=== PATIENT | female | born 2005 | race Hispanic/Latino ===

== ENCOUNTER 2023-11-20 22:04 | Emergency (ER) | payer OTHER ==
--- OUTSIDE RECORDS SUMMARY | 2023-11-20 22:08 | XMS REPORT | Continuity of Care Document ---
Author Name Unknown Address [address] [place] [address] [facility] thconnect Address [address] [facility] [address] [place] [address] Care Team Providers Care International Marketing Executive Name Role Phone PCP, PATIENT DOES NOT HAVE A Primary Care Physic kianna Unavailable Vannessa Shay Attending Clinician RIMA Hernández Attending Clinician RIMA Wright Attending Clinician Lucila gibson Doctor Unassigned, [place] Attending Clinician CLAUDINE Edward Attending Clinician Claudine Castellanos CNM Attending Clinician [phone] TRACEY CAMPOS Attending Clinician Unavail davide Campos Tracey PEACOCK Attending Clinician + JENNY DAVE Attending Clinician UnavailJENNY Chase Attending Clinician UnavailPERNELL Bustos Attending Clinician Pernell Valenzuela MD Attending Clinician [phone] Vaccine, Jed Family Attending Clinician Vannessa Vernon Admitting Clinician Unavailable Payers Payer Name Policy Type Policy Number Effective Date Expirati on Date Source JEZ HARMON [id number] 2023 00:00:00 [place] [id number] 2023 00:00:00 MEDICAID PENDING PENDING 2023 00:00:00 [employer] HARMON [id number] 2020 00:00:00 Problems Condition Name Condition Details Condition Category Status Onset Date Resolution Date Last Treatment Date Treating Clinician Comments Source Obesity (BMI 30-39.9) Obesity (BMI 30-39.9) Disease Active 3- 00:00: 00 [facility] related nausea, antepartum related nausea, antepartum Disease Active - 00:00: 00 [facility] Declines flu vaccine Declines flu vaccine Disease Active - 00:00: 00 [facility] History of miscarriag e, currently History of miscarriag e, currently Disease Active 1- 00:00: 00 [facility] Maternal varicella, non-immune Maternal varicella, non-immune Disease Active - 00:00: 00 [facility] Overweight (BMI 25.0-29.9) Overweight (BMI 25.0-29.9) Disease Active 03-02 00:00: 00 [facility] Allergies, Adverse Reactions, Alerts Allergy Name Allergy Type Status Severity Reaction(s) Onset Date Inactive Date Treating Clinician Comments Source No Known Allergie s DA Active U 2018-07 00:00: 00 [facility] No Known Allergie s DA Active U 2018-07 00:00: 00 [facility] No Known Contrast Allergie s DA Active U 2005-07 00:00: 00 [facility] No Known Drug Allergie s DA Active U 2005-07 00:00: 00 [facility] No Known Food Allergie s DA Active U 2005-07 00:00: 00 [facility] No Known Other Allergie s DA Active U 2005-07 00:00: 00 [facility] NO KNOWN ALLERGIE S Drug Class Active [facility] Social History Social Habit Start Date Stop Date Quantity Comments Source ASSERTION 2023-06-06 00:00:00 [facility] 2023-10-18 00:00:00 2023-10-18 00:00:00 Lifetime non-drinker (finding) [facility] History of Social function 2023-07-31 00:00:00 2023-07-31 00:00:00 [facility] Exposure to SARS-CoV-2 (event) 2022-02-20 00:00:00 2022-03-02 10:07:00 Not sure [facility] Tobacco use and exposure 2022-03-02 00:00:00 2022-03-02 00:00:00 Smokeless tobacco non-user [facility] Sex Assigned At 2005 00:00:00 2005 00:00:00 [facility] Smoking Status Start Date Stop Date Source Never smoked tobacco [facility] Medications Ordered Medication Name Filled Medication Name Start Date Stop Date Current Medication? Ordering Clinician Indication Dosage Frequency Signature (SIG) Comments Components Source No known medications 03-02 10:40: 53 No No known medication s [facility] Immunizations Ordered Immunization Name Filled Immunization Name Date Status Comments Source Meningococcal Polysaccharide (groups A, C, Y and W-135) conjugate vaccine (MCV4P) 2021-03-02 00:00:00 Completed [facility] HPV9 2021-03-02 00:00:00 Completed [facility] SARS-COV-2 COVID-19 PFIZER VACCINE 2021-03-02 00:00:00 Completed [facility] Meningococcal Polysaccharide (groups A, C, Y and W-135) conjugate vaccine (MCV4P) 2021-03-02 00:00:00 Completed [facility] HPV9 2021-03-02 00:00:00 Completed [facility] SARS-COV-2 COVID-19 PFIZER VACCINE 2021-03-02 00:00:00 Completed [facility] Meningococcal Polysaccharide (groups A, C, Y and W-135) conjugate vaccine (MCV4P) 2021-03-02 00:00:00 Completed [facility] HPV9 2021-03-02 00:00:00 Completed [facility] SARS-COV-2 COVID-19 PFIZER VACCINE 2021-03-02 00:00:00 Completed [facility] Meningococcal Polysaccharide (groups A, C, Y and W-135) conjugate vaccine (MCV4P) Unknown Completed [facility] HPV9 Unknown Completed [facility] SARS-COV-2 COVID-19 PFIZER VACCINE Unknown Completed [facility] Meningococcal Polysaccharide (groups A, C, Y and W-135) conjugate vaccine (MCV4P) Unknown Completed [facility] HPV9 Unknown Completed [facility] SARS-COV-2 COVID-19 PFIZER VACCINE Unknown Completed [facility] DTaP, Unspecified Formulation Unknown Completed [facility] DTaP, Unspecified Formulation Unknown Completed [facility] DTaP, Unspecified Formulation Unknown Completed [facility] DTaP, Unspecified Formulation Unknown Completed [facility] DTaP, Unspecified Formulation Unknown Completed [facility] HEPATITIS A Unknown Completed [facility] HEPATITIS A Unknown Completed [facility] Hep B, Adol or Pedi Dosage Unknown Completed [facility] Hep B, Adol or Pedi Dosage Unknown Completed [facility] Hep B, Adol or Pedi Dosage Unknown Completed [facility] HIB 4 Dose Schedule Unknown Completed [facility] HIB 4 Dose Schedule Unknown Completed [facility] HIB 4 Dose Schedule Unknown Completed [facility] HIB 4 Dose Schedule Unknown Completed [facility] MMR Unknown Completed [facility] Proquad (MMR/VARICELLA) Unknown Completed [facility] Meningococcal Vaccine Unknown Completed [facility] Pneumococcal 7 Conjugate, PCV7 (Prevnar7) Unknown Completed [facility] Pneumococcal 7 Conjugate, PCV7 (Prevnar7) Unknown Completed [facility] Pneumococcal 7 Conjugate, PCV7 (Prevnar7) Unknown Completed [facility] IPV Unknown Completed [facility] IPV Unknown Completed [facility] IPV Unknown Completed [facility] IPV Unknown Completed [facility] TDAP Unknown Completed [facility] Varicella (varivax)(chicken pox) Unknown Completed [facility] Meningococcal Polysaccharide (groups A, C, Y and W-135) conjugate vaccine (MCV4P) Unknown Completed [facility] HPV9 Unknown Completed [facility] SARS-COV-2 COVID-19 PFIZER VACCINE Unknown Completed [facility] DTaP, Unspecified Formulation Unknown Completed [facility] DTaP, Unspecified Formulation Unknown Completed [facility] DTaP, Unspecified Formulation Unknown Completed [facility] DTaP, Unspecified Formulation Unknown Completed [facility] DTaP, Unspecified Formulation Unknown Completed [facility] HEPATITIS A Unknown Completed [facility] HEPATITIS A Unknown Completed [facility] Hep B, Adol or Pedi Dosage Unknown Completed [facility] Hep B, Adol or Pedi Dosage Unknown Completed [facility] Hep B, Adol or Pedi Dosage Unknown Completed [facility] HIB 4 Dose Schedule Unknown Completed [facility] HIB 4 Dose Schedule Unknown Completed [facility] HIB 4 Dose Schedule Unknown Completed [facility] HIB 4 Dose Schedule Unknown Completed [facility] MMR Unknown Completed [facility] Proquad (MMR/VARICELLA) Unknown Completed [facility] Meningococcal Vaccine Unknown Completed [facility] Pneumococcal 7 Conjugate, PCV7 (Prevnar7) Unknown Completed [facility] Pneumococcal 7 Conjugate, PCV7 (Prevnar7) Unknown Completed [facility] Pneumococcal 7 Conjugate, PCV7 (Prevnar7) Unknown Completed [facility] IPV Unknown Completed [facility] IPV Unknown Completed [facility] IPV Unknown Completed [facility] IPV Unknown Completed [facility] TDAP Unknown Completed [facility] Varicella (varivax)(chicken pox) Unknown Completed [facility] Meningococcal Polysaccharide (groups A, C, Y and W-135) conjugate vaccine (MCV4P) Unknown Completed [facility] HPV9 Unknown Completed [facility] SARS-COV-2 COVID-19 PFIZER VACCINE Unknown Completed [facility] DTaP, Unspecified Formulation Unknown Completed [facility] DTaP, Unspecified Formulation Unknown Completed [facility] DTaP, Unspecified Formulation Unknown Completed [facility] DTaP, Unspecified Formulation Unknown Completed [facility] DTaP, Unspecified Formulation Unknown Completed [facility] HEPATITIS A Unknown Completed [facility] HEPATITIS A Unknown Completed [facility] Hep B, Adol or Pedi Dosage Unknown Completed [facility] Hep B, Adol or Pedi Dosage Unknown Completed [facility] Hep B, Adol or Pedi Dosage Unknown Completed [facility] HIB 4 Dose Schedule Unknown Completed [facility] HIB 4 Dose Schedule Unknown Completed [facility] HIB 4 Dose Schedule Unknown Completed [facility] HIB 4 Dose Schedule Unknown Completed [facility] MMR Unknown Completed [facility] Proquad (MMR/VARICELLA) Unknown Completed [facility] Meningococcal Vaccine Unknown Completed [facility] Pneumococcal 7 Conjugate, PCV7 (Prevnar7) Unknown Completed [facility] Pneumococcal 7 Conjugate, PCV7 (Prevnar7) Unknown Completed [facility] Pneumococcal 7 Conjugate, PCV7 (Prevnar7) Unknown Completed [facility] IPV Unknown Completed [facility] IPV Unknown Completed [facility] IPV Unknown Completed [facility] IPV Unknown Completed [facility] TDAP Unknown Completed [facility] Varicella (varivax)(chicken pox) Unknown Completed [facility] Vital Signs Vital Name Observation Time Observation Value Comments S ource Systolic blood pressure 2023-10-18 19:57:00 109 mm[Hg] [facility] Diastolic blood pressure 2023-10-18 19:57:00 70 mm[Hg] [facility] Heart rate 2023-10-18 19:57:00 92 /min [facility] Body temperature 2023-10-18 19:57:00 36.94 Concepcion [facility] Respiratory rate 2023-10-18 19:57:00 18 /min [facility] Body height 2023-10-18 19:57:00 154.9 cm [facility] Body weight 2023-10-18 19:57:00 74.447 kg [facility] BMI 2023-10-18 19:57:00 31.01 kg/m2 [facility] Systolic blood pressure 2023-07-31 19:40:00 115 mm[Hg] [facility] Diastolic blood pressure 2023-07-31 19:40:00 77 mm[Hg] [facility] Heart rate 2023-07-31 19:40:00 81 /min [facility] Body temperature 2023-07-31 19:40:00 36.22 Concepcion [facility] Respiratory rate 2023-07-31 19:40:00 18 /min [facility] Body height 2023-07-31 19:40:00 157.5 cm [facility] Body weight 2023-07-31 19:40:00 72.122 kg [facility] BMI 2023-07-31 19:40:00 29.08 kg/m2 [facility] Systolic blood pressure 2022-03-02 15:18:00 113 mm[Hg] [facility] Diastolic blood pressure 2022-03-02 15:18:00 69 mm[Hg] [facility] Heart rate 2022-03-02 15:18:00 74 /min [facility] Body temperature 2022-03-02 15:18:00 36.33 Concepcion [facility] Respiratory rate 2022-03-02 15:18:00 18 /min [facility] Body height 2022-03-02 15:18:00 157.5 cm [facility] Body weight 2022-03-02 15:18:00 74.163 kg [facility] BMI 2022-03-02 15:18:00 29.90 kg/m2 [facility] Oxygen saturation in Arterial blood by Pulse oximetry 2022-03-02 15:18:00 99 /min [facility] Procedures Procedure Date / Time Performed Performing Clinicia n Source >14 WEEKS US LIMITED 2023-10-18 20:23:29 Rima Cagle [facility] CONSENT TO CONTACT FOR VOLUNTARY RESEARCH 2023-10-18 19:42:45 Doctor Unassigned, [place] [facility] POCT URINALYSIS W/O SPECIFIC GRAVITY 2023-10-18 00:00:00 Rima Cagle [facility] GLUCOSE 1 HOUR POST PRANDIAL 2023-07-31 20:45:00 Claudine Dior [facility] CBC WITH DIFF 2023-07-31 20:45:00 Claudine Dior [facility] HEPATITIS B SURFACE ANTIGEN 2023-07-31 20:45:00 Claudine Dior [facility] HCV ANTIBODY 2023-07-31 20:45:00 [facility] 2023-07-31 20:45:00 Claudine Dior [facility] HIV 1/2 AG-AB WITH REFLEX 2023-07-31 20:45:00 Claudine Dior [facility] SYPHILIS IGG/IGM 2023-07-31 20:45:00 Claudine Dior [facility] POCT TEST 2023-07-31 19:34:00 Jessica Dior [facility] POCT URINALYSIS W/O SPECIFIC GRAVITY 2023-07-31 19:34:00 Claudine Dior [facility] CONSENT/REFUSAL FOR DIAGNOSIS AND TREATMENT 2023-07-31 19:30:03 Doctor Unassigned, [place] [facility] [id number] 2019-07-27 00:00:00 UZAIR [facility] [id number] 2019-07-27 00:00:00 UZAIR [facility] [id number] 2019-07-27 00:00:00 [facility] Encounters Start Date/Time End Date/Time Encounter Type Admission Type Attending Clinicians Care Facility Care Department Encounter ID Source 2019-08-09 00:00:00 Inpatient MALA Vannessa Shay [facility] [id number] [facility] 2019-07-27 17:02:00 Inpatient YEIMY Vannessa Shay [facility] [id number] [facility] 2023-11-15 08:15:00 2023-11-15 08:15:00 Outpatient R GARRETT-SHAWN S, RIMA GARRETT-SHAWN S, RIMA [facility] [id number] [facility] 2023-10-31 13:32:24 2023-10-31 13:32:24 Outpatient [facility] [id number] Navi Peters [place] 2023-10-28 14:32:44 2023-10-28 14:32:44 [id number] [id number] Navi Peters [place] 2023-10-21 08:15:00 2023-10-21 08:15:00 Outpatient R [facility] [id number] [facility] 2023-10-18 15:00:00 2023-10-18 15:28:29 Outpatient R GARRETT-SHAWN S, RIMA GARRETT-SHAWN S, RIMA [facility] [id number] [facility] 2023-10-18 15:00:00 2023-10-18 15:28:29 Initial Visit Garrett-Shawn s, Rima [facility] 1..840.114 350.1.13.10 4.2.7.2.686 [id number] [facility] 2023-10-18 00:00:00 2023-10-18 00:00:00 Orders Only Doctor Unassigned, [place] [facility] 1..840.114 350.1.13.10 4.2.7.2.686 [id number] [facility] 2023-09-24 10:30:00 2023-09-24 10:30:00 Outpatient CLAUDINE NEWMAN [facility] [id number] [facility] 2023-09-10 14:15:00 2023-09-10 14:15:00 Outpatient R CLAUDINE DIOR [facility] [id number] [facility] 2023-08-28 10:15:2023-08-28 10:15:00 Outpatient R ZOIEOpal CLAUDINE [facility] [id number] [facility] 2023-07-31 13:00:00 2023-07-31 14:08:24 Outpatient R ZOIEOpal CLAUDINE [facility] [id number] [facility] 2023-07-31 13:00:00 2023-07-31 14:08:24 Initial Visit Claudine Dior [facility] 1..114 350.1.13.10 4.2.7.2.686 [id number] [facility] 2023-07-31 00:00:00 2023-07-31 00:00:00 Orders Only Doctor Unassigned, [place] [facility] 1.0.114 350.1.13.10 4.2.7.2.686 [id number] [facility] 2023-01-09 11:00:00 2023-01-09 11:00:00 Outpatient R TRACEY CAMPOS [facility] [id number] [facility] 2023-01-09 00:00:00 2023-01-09 00:00:00 Telephone Tracey Campos [facility] 1.84.114 350.1.13.10 4.2.7.2.686 [id number] [facility] 2022-06-04 07:45:00 2022-06-04 07:45:00 Outpatient R JENNY DAVE CHRISTINA [facility] [id number] [facility] 2022-06-04 00:00:00 2022-06-04 00:00:00 Telephone Jenny Dave [facility] .84.114 350.1.13.10 4.2.7.2.686 [id number] [facility] 2022-03-02 10:00:00 2022-03-02 11:30:59 Office Visit Jenny Dave [facility] 1..114 350.1.13.10 4.2.7.2.686 [id number] [facility] 2022-03-02 10:00:00 2022-03-02 11:30:59 Outpatient R JENNY DAVE [facility] [id number] [facility] 2022-03-02 10:00:00 2022-03-02 10:00:00 Outpatient R JENNY DAVE [facility] [id number] [facility] 2022-03-02 00:00:00 2022-03-02 00:00:00 Orders Only Doctor Unassigned, [place] [facility] 1..114 350.1.13.10 4.2.7.2.686 [id number] [facility] 2021-11-30 08:30:00 2021-11-30 08:30:00 Outpatient R PERNELL RAMIREZ [facility] [id number] [facility] 2021-03-24 13:00:00 2021-03-24 13:00:00 Outpatient R [facility] [id number] [facility] 2021-03-02 12:59:14 2021-03-02 17:00:48 Office Visit [facility] 1.114 350.1.13.10 4.2.7.2.686 [id number] [facility] 2021-03-02 13:21:14 2021-03-02 13:31:14 Imm/Inj Visit Vaccine, Jed Family [facility] 1..114 350.1.13.10 4.2.7.2.686 [id number] [facility] 2021-03-02 13:00:00 2021-03-02 13:00:00 Outpatient R PERNELL RAMIREZ [facility] [id number] [facility] 2021-03-02 00:00:00 2021-03-02 00:00:00 Orders Only Doctor Unassigned, [place] [facility] 1.114 350.1.13.10 4.2.7.2.686 [id number] [facility] 2021-02-27 15:40:00 2021-02-27 15:40:00 Outpatient R PERNELL RAMIREZ [facility] [id number] [facility] 2021-01-13 13:40:00 2021-01-13 13:40:00 Outpatient Keyur [facility] [id number] [facility] 2021-01-03 15:20:00 2021-01-03 15:20:00 Outpatient R PERNELL RAMIREZ [facility] [id number] [facility] 2020-10-18 13:00:00 2020-10-18 13:00:00 Outpatient PERNELL ORLANDO [facility] [id number] [facility] 2020-10-04 14:25:10 2020-10-04 14:45:10 Office Visit [facility] 1.114 350.1.13.10 4.2.7.2.686 [id number] [facility] 2020-10-04 14:00:00 2020-10-04 14:00:00 Outpatient R PERNELL RAMIREZ [facility] [id number] [facility] 2020-10-04 00:00:00 2020-10-04 00:00:00 Orders Only Doctor Unassigned, [place] [facility] 1.114 350.1.13.10 4.2.7.2.686 [id number] [facility] Results Test Description Test Time Test Comments Results Result Co mments Source [facility] 2023-10-18 19:42:45* Test Item Value Reference Range Interpretation Comme nts [facility] (test code = 4947) Yes [facility] - SYPHILIS [id number] 17:02:24* Test Item Value Reference Range Interpretation Comme nts Syphilis IgG/IgM (test code = 28347-1) Non-reactive Non-reactive JOANIE (test code = JOANIE) Non-reactive - No serologic evidence of T. pallidum infection. Cannot exclude incubating or early syphilis. Submit a second specimen in 2-4 weeks if syphilis is clinically suspected. Equivocal - Further testing to follow. Reactive - Further testing to follow. Lab Interpretation (test code = 06055-3) Normal [facility] AG-AB WITH [id number] 09:29:10* Test Item Value Reference Range Interpretation Comme [facility] HIV Semi-quantitative (test code = 74071-1) 0.10 Negative JOANIE (test code = JOANIE) Non-reactive for HIV-1 antigen and HIV-1/HIV-2 antibodies. ?No laboratory evidence of HIV infection. ?Repeat in 2-4 weeks if acute HIV infection is suspected. [facility] Center[facility]CV [id number] 08:22:27* Test Item Value Reference Range Interpretation Comme [facility] HCV Ab (test code = 24597-6) Negative HCV Semi-Quantitative (test code = 70785-5) 0.01 [facility] SURFACE [id number] 08:05:01 * Test Item Value Reference Range Interpretation Comme [facility] HBsAg Semi-Quantitative (anastasia t code = 5195-3) 0.09 Negative [facility] 1 Hour Post [id number] 06:37:14* Test Item Value Reference Range Interpretation Comme nts GLUC 1 HR (test code = 8324893164) 79 mg/dL 120-170 L Lab Interpretation (test cod e = 64262-1) Abnormal [facility] WITH [id number] 05:28:46* Test Item Value Reference Range Interpretation Comme nts WBC (test code = 6690-2) 8.84 See_Comment [Automated messa ge] The system which generated this result transmitted reference range: 4.30 - 11.10 10*3/?L. The reference range was not used to interpret this result as normal/abnormal. RBC (test code = 789-8) 5.09 See_Comment [Automated [facility] ge] The system which generated this result transmitted reference range: 3.93 - 5.25 10*6/?L. The reference range was not used to interpret this result as normal/abnormal. HGB (test code = 718-7) 13.5 g/dL 11.6-15.0 HCT (test code = 4544-3) 41.2 % 35.7-45.2 MCV (test code = 787-2) 80.9 fL 80.6-95.5 MCH (test code = 785-6) 26.5 pg 25.9-32.8 MCHC (test code = 786-4) 32.8 g/dL 31.6-35.1 RDW-SD (test code = 96084-9) 41.4 fL 39.0-49.9 RDW-CV (test code = 788-0) 14.2 % 12.0-15.5 PLT (test code = 777-3) 261 See_Comment [Automated [employer] ge] The system which generated this result transmitted reference range: 166 - 358 10*3/?L. The reference range was not used to interpret this result as normal/abnormal. MPV (test code = 10438-0) 10.8 fL 9.5-12.9 NRBC/100 WBC (test code = 7411063410) 0.0 See_Comment [Automated me ssage] The system which generated this result transmitted reference range: 0.0 - 10.0 /100 WBCs. The reference range was not used to interpret this result as normal/abnormal. NRBC x10^3 (test code = 9622565761) See_Comment [Automated me ssage] The system which generated this result transmitted reference range: 10*3/?L. The reference range was not used to interpret this result as normal/abnormal. GRAN MAT (NEUT) % (test code = 770-8) 74.2 % IMM GRAN % (test code = 0263720679) 0.20 % LYMPH % (test code = 736-9) 19.1 % MONO % (test code = 5905-5) 4.8 % EOS % (test code = 713-8) 0.9 % BASO % (test code = 706-2) 0.8 % GRAN MAT x10^3(ANC) (test code = 7658327483) 6.56 10*3/uL 1.88-7.09 IMM GRAN x10^3 (test code = 3159723850) 0.00-0.06 LYMPH x10^3 (test code = 731-0) 1.69 10*3/uL 1.32-3.29 MONO x10^3 (test code = 742-7) 0.42 10*3/uL 0.33-0.92 EOS x10^3 (test code = 711-2) 0.08 10*3/uL 0.03-0.39 BASO x10^3 (test code = 704-7) 0.07 10*3/uL 0.01-0.07 [facility] [id number] 21:04:00 * Test Item Value Reference Range Interpretation Comme nts ABO & RH (test code = 20) O POSITIVE IAT (test code = 1185) Negative [facility] [id number] 19:34:00* Test Item Value Reference Range Interpretation Comme nts POCT PREG (test code = 1605) Positive On board controls acceptable with C Line (test code = 3574) Yes POCT PREG LOT # (test code = 3575) POCT PREG TEST DATE ( test code = 3576) [facility] Urinalysis w/o Specific Npyvngu0561-88-48 19:34:00* Test Item Value Reference Range Interpretation Comme nts POCT PH U (test code = 3254) 7 mg/dl 5-8 POCT U LEUK EST (test code = 3263) 2+ Negative - Negative POCT U NIT (test code = 3262) Neg Negative - Negati ve POCT U PROT (test code = 8059) Neg Negative - Negat jose POCT U GLU (test code = 4926) Nml Negative - Negati ve POCT U KETONE (test code = 3258) Neg Negative - Neg ative POCT U BLD (test code = 3257) Trace Negative - Negati ve [facility] Center[facility] [id number] 12:43:00* Test Item Value Reference Range Interpretation Comme nts AG HEPATITIS B SURFACE (test code = HBSAG) NONREACTIVE NONREACTIVE IS CONSENT FORM SIGNED FOR HIV TESTING? YAB HEPATITIS C [id number] 12:43:00* Test Item Value Reference Range Interpretation Comme nts AB HEPATITIS C (test code = HCVAB) NONREACTIVE NONREACTIVE SIGNAL TO CUTOFF (test code = CUTOFF) 0.11 <0.80 N IS CONSENT FORM SIGNED FOR HIV TESTING? YAB [id number] 12:43:00* Test Item Value Reference Range Interpretation Comme nts AB TREPONEMA (test code = TREPAB) NONREACTIVE NONREACTIVE IS CONSENT FORM SIGNED FOR HIV TESTING? YAB HIV 1 12:43:00* Test Item Value Reference Range Interpretation Comme nts AB HIV 1 2 (test code = JUC68MG) NONREACTIVE NONREACTIVE Done by [employer] 4th Gen HIV Ag/Ab Combo Screen IS CONSENT FORM SIGNED FOR HIV TESTING? YHGB [id number] 05:54:00* Test Item Value Reference Range Interpretation Comme nts HEMOGLOBIN (test code = HGB) 9.2 g/dL 12.0-16.0 L HEMATOCRIT (test code = HCT) 28.7 % 36-45 L AG HEPATITIS B [id number] 19:04:00* Test Item Value Reference Range Interpretation Comme nts AG HEPATITIS B SURFACE (test code = HBSAG) NONREACTIVE NONREACTIVE IS CONSENT FORM SIGNED FOR HIV TESTING? YAB HEPATITIS C [id number] 19:04:00* Test Item Value Reference Range Interpretation Comme nts AB HEPATITIS C (test code = HCVAB) NONREACTIVE NONREACTIVE SIGNAL TO CUTOFF (test code = CUTOFF) 0.11 <0.80 N IS CONSENT FORM SIGNED FOR HIV TESTING? YAB [id number] 19:04:00* Test Item Value Reference Range Interpretation Comme nts AB TREPONEMA (test code = TREPAB) NONREACTIVE NONREACTIVE IS CONSENT FORM SIGNED FOR HIV TESTING? YAB HIV 1 19:04:00* Test Item Value Reference Range Interpretation Comme nts AB HIV 1 2 (test code = NGP49GA) NONREACTIVE IS CONSENT FORM SIGNED FOR HIV TESTING? YAG HEPATITIS B [id number] 18:41:00* Test Item Value Reference Range Interpretation Comme nts AG HEPATITIS B SURFACE (test code = HBSAG) NONREACTIVE NONREACTIVE IS CONSENT FORM SIGNED FOR HIV TESTING? YAB HEPATITIS C [id number] 18:41:00* Test Item Value Reference Range Interpretation Comme nts AB HEPATITIS C (test code = HCVAB) NONREACTIVE SIGNAL TO CUTOFF (test code = CUTOFF) <0.80 IS CONSENT FORM SIGNED FOR HIV TESTING? YAB [id number] 18:41:00* Test Item Value Reference Range Interpretation Comme nts AB TREPONEMA (test code = TREPAB) NONREACTIVE NONREACTIVE IS CONSENT FORM SIGNED FOR HIV TESTING? YAB HIV 1 18:41:00* Test Item Value Reference Range Interpretation Comme nts AB HIV 1 2 (test code = XBI89QA) NONREACTIVE IS CONSENT FORM SIGNED FOR HIV TESTING? YCBC W/AUTO [id number] 17:34:00* Test Item Value Reference Range Interpretation Comme nts WHITE BLOOD CELL (test code = WBC) 11.3 K/mm3 6.6-12.1 N RED BLOOD CELL (test code = RBC) 4.21 M/mm3 3.45-5.01 N HEMOGLOBIN (test code = HGB) 11.3 g/dL 12.0-16.0 L HEMATOCRIT (test code = HCT) 34.6 % 36-45 L MEAN CELL VOLUME (test code = MCV) 82 fL 84.1-94.8 L MEAN CELL HGB (test code = MCH) 26.8 pg 26-32 N MEAN CELL HGB CONCETRATION ( test code = MCHC) 32.7 gm/dL 32-35 N RED CELL DISTRIBUTION WIDTH (test code = RDW) 13.5 % 12.4-16.5 N PLATELET COUNT (test code = PLT) 219 K/mm3 135-380 N IMMATURE PLATELET FRACTION ( test code = IPF) 0.0 % 0.0-10.8 N MEAN PLATELET VOLUME (test c ode = MPV) 10.7 fl 9.1-12.7 N NEUTROPHIL % (test code = NT%) 80.5 % 56.5-79.4 H LYMPHOCYTE % (test code = LY%) 14.0 % 14.3-34.3 L MONOCYTE % (test code = MO%) 4.4 % 5.1-10.4 L EOSINOPHIL % (test code = EO%) 0.3 % 0.1-3.0 N BASOPHIL % (test code = BA%) 0.4 % 0.1-1.0 N NEUTROPHIL # (test code = NT#) 9.1 K/mm3 LYMPHOCYTE # (test code = LY#) 1.6 K/mm3 MONOCYTE # (test code = MO#) 0.5 K/mm3 EOSINOPHIL # (test code = EO#) 0.03 K/mm3 BASOPHIL # (test code = BA#) 0.0 K/mm3 RBC MORPHOLOGY REQUIRED (anastasia t code = RBCM) NORMAL NORMAL PLATELET MORPHOLOGY REQUIRED (test code = PLTMR) NORMAL NORMAL COMPREHENSIVE METABOLIC [id number] 21:09:00* Test Item Value Reference Range Interpretation Comme nts SODIUM (test code = NA) 137 mEq/L 133-142 N POTASSIUM (test code = K) 3.8 mEq/L 3.5-5.0 N CHLORIDE (test code = CL) 103 mEq/L 98-107 N CARBON DIOXIDE (test code = CO2) 23 mEq/L 22-31 N ANION GAP (test code = GAP) 14.60 10-20 N GLUCOSE (test code = GLU) 79 mg/dL 65-100 N BLOOD UREA NITROGEN (test co de = BUN) 7 mg/dL 9-20 L CREATININE (test code = CREAT) 0.6 mg/dL 0.5-1.0 N TOTAL PROTEIN (test code = PROT) 6.9 gm/dL 6.3-8.2 N ALBUMIN (test code = ALB) 2.7 gm/dL 3.9-5.1 L CALCIUM (test code = CA) 8.5 mg/dL 8.9-10.7 L BILIRUBIN TOTAL (test code = BILT) 0.3 mg/dL 0.2-1.0 N SGOT/AST (test code = AST) 17 units/L 15-37 N SGPT/ALT (test code = ALT) 25 units/L 12-78 N ALKALINE PHOSPHATASE TOTAL ( test code = ALKP) 205 units/L 125-500 N [id number] 21:09:00* Test Item Value Reference Range Interpretation Comme nts LIPASE (test code = LIP) 130 units/L 73-393 N UA RFLX MICR CULT IF [id number] 20:44:00* Test Item Value Reference Range Interpretation Comme nts UA COLOR (test code = COLU) STRAW YELLOW UA APPEARANCE (test code = APPU) CLEAR CLEAR UA GLUCOSE DIPSTICK (test co de = DGLUU) NEGATIVE NEG UA BILIRUBIN DIPSTICK (test code = BILU) NEGATIVE NEG UA KETONE DIPSTICK (test cod e = KETU) NEGATIVE NEG UA SPECIFIC GRAVITY (test co de = SGU) 1.004 1.001-1.035 N UA BLOOD DIPSTICK (test code = DENICE) NEG NEG UA PH DIPSTICK (test code = RAY) 8.0 5-9 UA PROTEIN DIPSTICK (test co de = PROU) NEGATIVE NEG UA UROBILINIOGEN DIPSTICK (test code = URO) NEGATIVE mg/dL NEG UA NITRITE DIPSTICK (test co de = MYRIAM) NEG NEG UA LEUKOCYTE ESTERASE DIPSTI CK (test code = LEUU) TRACE NEG A UA WBC (test code = WBCU) 11-15 #/hpf NONE SEEN A UA RBC (test code = RBCU) 0-2 #/hpf NONE SEEN UA EPITHELIAL CELLS (test co de = EPIU) RARE #/HPF RARE-FEW UA BACTERIA (test code = BACU) MODERATE /HPF RARE-FEW A UA MUCUS (test code = MUCU) RARE NONE SEEN UA SPERM (test code = SPERMU) FEW /HPF Indication for culture: Dysuria/FrequencyCBC W/AUTO [id number] 20:37:00* Test Item Value Reference Range Interpretation Comme nts WHITE BLOOD CELL (test code = WBC) 10.5 K/mm3 6.6-12.1 N RED BLOOD CELL (test code = RBC) 4.16 M/mm3 3.45-5.01 N HEMOGLOBIN (test code = HGB) 11.3 g/dL 12.0-16.0 L HEMATOCRIT (test code = HCT) 35.2 % 36-45 L MEAN CELL VOLUME (test code = MCV) 85 fL 84.1-94.8 N MEAN CELL HGB (test code = MCH) 27.2 pg 26-32 N MEAN CELL HGB CONCETRATION ( test code = MCHC) 32.1 gm/dL 32-35 N RED CELL DISTRIBUTION WIDTH (test code = RDW) 12.9 % 12.4-16.5 N PLATELET COUNT (test code = PLT) 231 K/mm3 135-380 N IMMATURE PLATELET FRACTION ( test code = IPF) 0.0 % 0.0-10.8 N MEAN PLATELET VOLUME (test c ode = MPV) 10.6 fl 9.1-12.7 N NEUTROPHIL % (test code = NT%) 71.1 % 56.5-79.4 N LYMPHOCYTE % (test code = LY%) 21.1 % 14.3-34.3 N MONOCYTE % (test code = MO%) 6.2 % 5.1-10.4 N EOSINOPHIL % (test code = EO%) 0.7 % 0.1-3.0 N BASOPHIL % (test code = BA%) 0.5 % 0.1-1.0 N NEUTROPHIL # (test code = NT#) 7.5 K/mm3 LYMPHOCYTE # (test code = LY#) 2.2 K/mm3 MONOCYTE # (test code = MO#) 0.7 K/mm3 EOSINOPHIL # (test code = EO#) 0.07 K/mm3 BASOPHIL # (test code = BA#) 0.1 K/mm3 RBC MORPHOLOGY REQUIRED (anastasia t code = RBCM) NORMAL NORMAL PLATELET MORPHOLOGY REQUIRED (test code = PLTMR) NORMAL NORMAL Notes Date/Time Note Provider Source 2023-10-18 15:00:00 eKwYu2/siAVu5/Ye1YCJ BnJ147OGMmMqpJvct/OeiV N8zSnhMQFGN5R7SKLPdFHD1931-56-98V90:00:00F ormatting of this note is different from the original.ROUTINE VISIT--transfer of care10/18/2023 3:27 PMSUBJECTIVEElymike Heath is a 18 year old at 21w1d who presents for routine visit. She has no complaints today; denies contractions, loss of fluid, vaginal bleeding, and signs or symptoms of pre-eclampsia. Good movement.Previous uncomplicated. Issues getting insurance approved so no care since 9 weeks.OBJECTIVEBP 109/70 (BP Location: Left arm, Patient Position: Sitting, BP CUFF SIZE: Adult Medium) | Pulse 92 | Temp 36.9 ?C (98.5 ?F) (Skin) | Resp 18 | Ht 5' 1" (1.549 m) | Wt 164 lb 2 oz (74.4 kg) | LMP 05/23/2023 (Exact Date) | BMI 31.01 kg/m?Physical Exam:Gen: A&Ox3, NADPulm: No labored breathingAbd: Soft, gravid, NTTP, ND, no rebound or guardingExt: No calf tendernessGU: deferredASSESSMENT:Hallie Heath is a 18 year old at 21w1d who presents for routine visit.Patient Active Problem ListDiagnosisOverweight (BMI 25.0-29.9) related nausea, antepartumDeclines flu vaccineHistory of miscarriage, currently Maternal varicella, non-immuneObesity (BMI 30-39.9)Transabdominal US performed:EGA: 20w4d consistent with LMPFetal Position: complete breechPlacenta location: posterior, low lyingFHR: 248AHXN4. 21 weeks gestation of - POCT Urinalysis w/o Specific [place]- CONSULT MATERNAL MEDICINE ULTRASOUND Preferred Location: [place]2. High-risk in second trimester- OB Ultrasound Transabdominal, Limited (>14 wks)- CONSULT MATERNAL MEDICINE ULTRASOUND Preferred Location: [place]--pt accepts genetic screening--Anatomy US requested--reviewed today's US findings--All questions answered [id number] mltgOL8893-58-44L77:34:43Progress noteTXT1.2.840.333243.1.13.104.2.7.2.87102 9|[id number] for patient zujn02225-5PnkoNUDTMFKVYVXSqdtdyhdq C-CDA narrative textUTMBUT - [address] HpxrPqdctclbrMbbueanduZTOY1018947996KWPEKG KUMOFXHGMNUTGUVL5516-53-99W66:34:431.2.840 .329991.1.72.3.15|1.2.840.300950.1.13.104. 2.7.2.727879_[id number] [facility] 2019-07-27 21:41:00 BMjkrqwufmg58944615J qSIryMTT+KL+3qz8pk7rTJ ws3J67HthH1dgQJYicsYn4UGwR4SndlrSuHpaJ0V59 986-87-08R27:41:00 [facility] ([facility])OB Delivery NoteREPORT#:[id number] REPORT STATUS: SignedDATE:07/27/19 TIME: 2140 PATIENT: HALLIE HEATH UNIT #: [id number]#: [id number] [facility] [place]: [facility] AGE: 14 SEX: F ATTEND: Vannessa Shay [facility] AUTHOR: Vannessa Shay MD * ALL edits or amendments must be made on the electronic/computer document * OB Delivery Pre-deliveryGBS status: GBS status: negative Prophylaxis administered: noneAdmission EGA (wks/days): 38 weeksEGA at delivery (wks/days): 38 weeks GeneralVS:Last Documented: Result Date Time B/P Mean 103.0 07/27 2055 B/P 126/87 07/27 2055 Pulse 104 07/27 2055 Temp 36.8 07/27 1909 Resp 20 07/27 1719 Membranes: AROMROM date: 07/27/19ROM time: mniotic fluid: clearLabor onset: Date: 07/27/19 Baby A InformationBaby A information Delivery date: 07/27/19 Delivery time: 2114 status: live born Wt of baby: not yet available Gender: male 1 minute: 8 5 minutes: 9 Presentation: vertexABG details Baby A Cord blood gases: not collectedNuchal cord Baby A Nuchal cord: yes (tight,deliv.through) Vaginal DeliveryVaginal delivery Labor: spontaneous Vaginal delivery: spontaneous Amniotic fluid: clear Anesthesia type: epidural anesthesia Episiotomy: none Episiotomy repair: no Laceration repair: yes Episiotomy/laceration suture: 2-0 (chromic) Placenta: spontaneous Post delivery meds used: oxytocin Count: correct Mother's condition: mother stable Infant's condition: stable in roomLacerations: Perineal laceration(s): 1st Degree (CLITORAL) High vaginal laceration: no Blood Loss/DetailsEBL (ml's): 300 at 2146 RPT #:[id number] OF REPORT OBObstetric kemk3977-51-43P27:41:00F.DOQP46614779-9205 AVAvailable for patient kuurMJHRFONRRUAPHB2380-70-71N95:47:06 [facility] 2019-07-27 17:48:00 [id number] F3+/YyHrVxdivc8wnhzuIY 87pl7yI+Cthe9UJOa/xYwLNjYruIgARrO/Ni/hV4l2 523-89-87S86:48:00 [facility] ([facility])OB Admission / H PREPORT#:[id number] REPORT STATUS: SignedDATE:07/27/19 TIME: 1748 PATIENT: HALLIE HEATH UNIT #: [id number]#: [id number] [facility] [place] [birth year] AGE: 14 SEX: F ATTEND: Vannessa Shay [facility] AUTHOR: Vannessa Shay MD * ALL edits or amendments must be made on the electronic/computer document * OB Admission H P HxChief complaint: uterine contractionsHPI:G1 at 38 weeks of history: : 1 Term: 0 : 0 Abortus: 0 Living children: 0Current : EDC: 08/07/19 Admission EGA (wks/days): 38 weeks (3 days) EGA based on: conception date, LMP, ultrasound, 1st trimester, ultrasound, 2nd trimesterLabs: Rh: positive Rubella: immune Hepatitis B: negative HIV: negative STD: negative GBS: negativeProcedures: noneGenetic testing: nonePast medical history: denies PMHPast surgical history: denies PSHSocial history: unemployed, no alcohol use, no tobacco use, no drug useFamily historyRelation not specified for: Family History: Unremarkable Medications:Home Medications:PNV WITH FE FUMARATE/FA () 1 TAB PO DAILY NITROFURANTOIN/NITROFURAN MAC (MACROBID) 100 MG PO BID AllergiesCoded Allergies:No Known Allergies (07/27/19) Review of SystemsAll systems rev neg: except as marked Objective GeneralVS:Last Documented: Result Date Time B/P Mean 103.0 07/27 1651 B/P 128/87 07/27 1651 Pulse 63 07/27 1651 Vital Signs Date Temp Pulse Resp B/P B/P Mean Pulse Ox FiO2 07/27 63 128/87 103.0 Patient Weight Weight (lb): Weight (oz): Weight (kg): Physical ExamCardiac: regular rate and rhythmLungs: clear to auscultationBreasts: deferredNeuro: Exam: alert, oriented x3 DTR's (lower extr): normal 1-2+Abdomen: gravid, softUterine activity: Monitor: toco Frequency (description): regular Frequency (minutes): 5 Duration (seconds): 30 Intensity: strong Resting tone: relaxed Tachysystole: NoPelvic exam: Pelvis clinically adequate: yes Vulvar lesions: none Vagina: normal Uterus size in weeks: 38 Exam: soft, non-tenderCervical/ exam: Dilatation (cm): 6 Effacement (%): 80 Est wt (gms): 3500 Suspected macrosomia: No station: - 2 presentation: cephalicMembranes: Membranes: IntactLower extremities: Edema: traceBaby A: Baby A baseline: 130 bpm Baby A variability: marked > 25 bpm Baby A accelerations: 15 X 15 Baby A decelerations: none Baby A FHR category: category 1 Diagnosis, Assessment Plan Diagnosis, Assessment PlanAssessment/Impression: spont.active labor<39 wksPlan: admit to inpatientConsultation(s): Consultation performed: anesthesia at 1755 RPT #:[id number] OF REPORT HPHistory and physical qnnruijscoc4820-43-80K94:48:00F.YMFQ252188 30-0301AVAvailable for patient rpoaAZRVSSCDOBIFVH3136-09-19Y94:55:40 [facility] 2019-07-16 23:42:00 NHhmiihbter16946660G mKqsDCJZMwXq28qOE3q9tb ay6T0MPyorfxtQPXq1MBEGjuPwgIQWPgxhnGznP2z1 013-24-71W89:42:00 [facility] ([facility])EMERGENCY PROVIDER REPORTREPORT#:[id number] REPORT STATUS: SignedDATE:07/16/19 TIME: 2341 PATIENT: HALLIE HEATH UNIT #: [id number]#: [id number] ROOM/BED:AGE: 14 SEX: F PCP PHYS: Vannessa Shay MDSERVICE AUTHOR: Kristi Godinez MD * ALL edits or amendments must be made on the electronic/computer document * HARRIET HistoryChief complaint: nausea and vomitingHPI:asked to evaluate patient by Dr. Shaypatient is a 14y/o EDC: 08/07/19 @ 36 week 6 day presents to MAC c/o N/V no fevers/chills/cp/sob/leg pain/dysuria/ctx/lof/vb+FMPast medical history: denies PMHPast surgical history: denies PSHSocial history: no alcohol use, no tobacco use, no drug useFamily historyRelation not specified for: Family History: Unremarkable Medications:Current Hospital Medications:Anti-Infective Agents Sig/Jennifer Start time Last Medication Dose Route Stop Time Status Admin Ceftriaxone Sodium 1,000 MG Q24H 07/16 2200 AC 07/16 (ROCEPHIN 1000 MG/ IV 07/23 VIAL) Sodium Chloride 100 ML (SODIUM CHLORIDE 0.9% 100 ML) Electrolytic, Caloric, And Sissy Sig/Jennifer Start time Last Medication Dose Route Stop Time Status Admin Sodium Chloride 1,000 ML X1ED STA 07/16 2017 DC 07/16 (SODIUM CHLORIDE IV 07/16 0.9% - 1000 ML) Gastrointestinal Drugs Sig/Jennifer Start time Last Medication Dose Route Stop Time Status Admin Ondansetron HCl 4 MG ONCE ONE 07/16 2030 DC 07/16 (ZOFRAN 2 MG/ML 4 MG IV 07/16 SYR) Famotidine 20 MG X1ED STA 07/16 2017 DC 07/16 (PEPCID 10 MG/ML 2ML IV 07/16 VIAL) AllergiesUncoded Allergies:No Known Contrast Allergies (01/18/09)No Known Drug Allergies (01/18/09)No Known Food Allergies (01/18/09)No Known Other Allergies (01/18/09) Review of SystemsConstitutional:Denies: chills, fatigue, fever, generalized weakness, lethargy, malaise, recent wt loss, other. Skin:Denies: abrasion, bruising, contusion, diaphoresis, ecchymosis, itching, laceration, rash, swelling, other. Allergy/Immun:Denies: allergic reaction, anaphylaxis, hives, itching, rhinorrhea, sneezing, other. Eyes:Denies: redness, discharge, visual loss/blurred, itching, diplopia, eye pain, photophobia, swelling, other. ENT:Denies: ear drainage, ear ringing, earache, hearing loss, mouth pain, nasal congestion, nose bleeding, sinus problem, sore throat, throat pain, throat swelling, tongue pain, tongue swelling, toothache, voice change, other. Respiratory:Denies: PATTERSON (dyspnea on exertion), hemoptysis, non productive cough, parox nocturnal dyspnea, pleurisy, pleuritic pain, pneumonia, productive cough (sputum), SOB, wheezing, other. Cardiovascular:Denies: chest pain, PATTERSON (dyspnea on exertion), edema, orthopnea, palpitations, parox nocturnal dyspnea, other. GI:Reports: nausea, vomiting. Denies: abdominal pain, anorexia, constipation, diarrhea, dysphagia, GERD, hematemesis, hematochezia, hiatal hernia, melena, rectal pain, other. :Reports: . Denies: dysuria, flank pain, frequency, hematuria, nocturia,pelvic pain, urgency, urinary retention, vaginal bleeding, vaginal discharge, other. Neuro:Denies: bladder dysfunction, bowel dysfunction, change in LOC, confusion, dizziness, focal weakness, gait problem, headache, lightheaded, numbness, seizure, slurred speech, spinning sensation, syncope, unable to speak, vision change, weakness, other. Psych:Denies: agitation, anxiety, auditory hallucination, change in mental status, confusion, delusional, depression, homicidal ideation, hostile, insomnia, stress, suicidal ideation, visual hallucination, other. All systems rev neg: except as marked Objective GeneralVS:Last Documented: Result Date Time Pulse Ox 100 07/16 1949 B/P 116/76 07/16 1949 B/P Mean 89 07/16 1949 O2 Delivery Room air 07/16 1949 Temp 97.9 07/16 1949 Pulse 84 07/16 1949 Resp 16 07/16 1949 Vital Signs Date Temp Pulse Resp B/P B/P Mean Pulse Ox FiO2 07/16 97.9 84 16 116/76 89 100 Patient Weight Weight (lb): Weight (oz): Weight (kg): 71.400 Physical ExamHEENT: normocephalic w/o injuryCardiac: normal rhythmLungs: clear to auscultationBreasts: deferredNeuro: Exam: alert, oriented x3, normal speechAbdomen: gravid, soft, no abnormal tenderness, no guarding, normoactive bowel soundsUterine activity: Monitor: toco Frequency (description): none FHR evaluation: Baseline: 120 bpm Variability: moderate 6-25 bpm Accelerations: 15 X 15 Decelerations: none FHR category: reactiveMembranes: Membranes: IntactLower extremities: Edema: none Gregory's sign: negative Calf tenderness: negative ResultFindings/Data:Laboratory Tests: 07/16 1958 Chemistry Sodium (133 - 142 mEq/L) 137 Potassium (3.5 - 5.0 mEq/L) 3.8 Chloride (98 - 107 mEq/L) 103 Carbon Dioxide (22 - 31 mEq/L) 23 Anion Gap (10 - 20) 14.60 BUN (9 - 20 mg/dL) 7 L Creatinine (0.5 - 1.0 mg/dL) 0.6 Glucose (65 - 100 mg/dL) 79 Calcium (8.9 - 10.7 mg/dL) 8.5 L Total Bilirubin (0.2 - 1.0 mg/dL) 0.3 AST (15 - 37 units/L) 17 ALT (12 - 78 units/L) 25 Total Alk Phosphatase (125 - 500 units/L) 205 Total Protein (6.3 - 8.2 gm/dL) 6.9 Albumin (3.9 - 5.1 gm/dL) 2.7 L Lipase (73 - 393 units/L) 130 Hematology WBC (6.6 - 12.1 K/mm3) 10.5 RBC (3.45 - 5.01 M/mm3) 4.16 Hgb (12.0 - 16.0 g/dL) 11.3 L Hct (36 - 45 %) 35.2 L MCV (84.1 - 94.8 fL) 85 MCH (26 - 32 pg) 27.2 MCHC (32 - 35 gm/dL) 32.1 RDW (12.4 - 16.5 %) 12.9 Plt Count (135 - 380 K/mm3) 231 MPV (9.1 - 12.7 fl) 10.6 Neut % (Auto) (56.5 - 79.4 %) 71.1 Lymph % (Auto) (14.3 - 34.3 %) 21.1 [place] % (Auto) (5.1 - 10.4 %) 6.2 Eos % (Auto) (0.1 - 3.0 %) 0.7 Baso % (Auto) (0.1 - 1.0 %) 0.5 Neut # (Auto) (K/mm3) 7.5 Lymph # (Auto) (K/mm3) 2.2 [place] # (Auto) (K/mm3) 0.7 Eos # (Auto) (K/mm3) 0.07 Baso # (Auto) (K/mm3) 0.1 Immature Plt Fraction (0.0 - 10.8 %) 0.0 Urines Urine Color (YELLOW) STRAW Urine Appearance (CLEAR) CLEAR Urine pH (5 - 9) 8.0 Ur Specific [place] (1.001 - 1.035) 1.004 Urine Protein (NEG) NEGATIVE Urine Glucose (UA) (NEG) NEGATIVE Urine Ketones (NEG) NEGATIVE Urine Blood (NEG) NEG Urine Nitrite (NEG) NEG Urine Bilirubin (NEG) NEGATIVE Urine Urobilinogen (NEG mg/dL) NEGATIVE Ur Leukocyte Esterase (NEG) TRACE H Urine RBC (NONE SEEN #/hpf) 0-2 Urine WBC (NONE SEEN #/hpf) 11-15 H Ur Epithelial Cells (RARE - FEW #/HPF) RARE Urine Bacteria (RARE - FEW /HPF) MODERATE H Urine Mucus (NONE SEEN) RARE Urine Sperm (/HPF) FEW Microbiology: Date/Time Procedure - Status Source Growth 07/16 2044 Urine Culture - RECD URINE Results: labs reviewed, vital signs stable Diagnosis, Assessment Plan Diagnosis, Assessment PlanFree Text A P:IUP @ 36 weeks 6 days GA with UTI no evidence of ptl/pyelonephritis/sepsis. FHR reactive Plan: pt given rocephin rx sent to pharmacy by primary ob ptl/pyelonephritis warnings given f/u primary ob at 2352 RPT #:[id number] OF REPORT OBObstetric [id number] AVAvailable for patient [id number] [facility] 2019-07-16 20:50:00 [id number]:50:00 [facility] ([facility])EMERGENCY PROVIDER REPORTREPORT#:[id number] REPORT STATUS: SignedDATE:07/16/19 TIME: 2049 PATIENT: HALLIE HEATH UNIT #: [id number]#: [id number] ROOM/BED:AGE: 14 SEX: F PCP PHYS: Vannessa Shay MDSERVICE AUTHOR: Brian Coleman MD * ALL edits or amendments must be made on the electronic/computer document * HPI-General Illness Free Text HPI NotesFree Text HPI Notes14 yrs old female 36 wks c/o abd discomfort, nausea and vomiting. No distress. No vaginal bleeding/leakage of fluid. No fever/back pain. No chest pain. GeneralInitial Greet Date/Time 07/16/191937 PresentationChief Complaint Vomiting Review of Systems ROS StatementsAll systems rev neg except as marked.Complete sys rev neg except as marked. Past Medical History - AdultStated Complaint 36 WK , VOMITINGAllergiesUncoded Allergies:No Known Contrast Allergies (01/18/09)No Known Drug Allergies (01/18/09)No Known Food Allergies (01/18/09)No Known Other Allergies (01/18/09) Home MedicationsReported MedicationsPNV WITH FE FUMARATE/FA () 1 TAB PO DAILY NITROFURANTOIN/NITROFURAN MAC (MACROBID) 100 MG PO BID Review of Nursing Notes Rev avail, and agree Physical Exam Vital SignsVital SignsFirst Documented: Result Date Time Pulse Ox 100 07/16 1949 B/P 116/76 07/16 1949 B/P Mean 89 07/16 1949 O2 Delivery Room air 07/16 1949 Temp 36.6 07/16 1949 Pulse 84 07/16 1949 Resp 16 07/16 1949 Last Documented: Result Date Time Pulse Ox 100 07/16 1949 B/P 116/76 07/16 1949 B/P Mean 89 07/16 1949 O2 Delivery Room air 07/16 1949 Temp 36.6 07/16 1949 Pulse 84 07/16 1949 Resp 16 07/16 1949 Review of Vital Signs Reviewed Physical ExamGeneral/Const General/Const Awake, Alert, Well appearingMS Head Head NormocephalicEyes Eyes PERRLEars/Nose/Throat Ears/Nose/Throat Airway patent, Mucous membranes moist, Pharynx NLMS Neck Neck Supple, No meningismus, Full range of motion, No swelling, Non-tender, No massesResp/Chest Respiratory/Chest Breath sounds NL, Breath sounds = bilat, No respiratory distress, No rales, No rhonchi, No wheezingCardiovascular Cardiovascular Heart rate NL, Regular rhythm, Heart sounds NL, Cap refill notdelayed, Peripheral circulation NLAbdomen/GI Abdomen/GI Soft, Non-tender, No guarding, No reboundMS Back Back Inspection NL, Painless range of motion, Non-tender, No CVA tendernessLymphatic Lymphatic No gross adenopathyMS Upper Extrem Upper Extremity/MS Inspection NL, No swelling, Non-tender, No erythema, No deformity, Neurologic intact, Vascular intact, No clubbing/cyanosisMS Wrist/Hand Wrist/Hand Inspection NL, No swelling, No erythema, Non-tender, No deformity,Neurologic intact, Vascular intact, No clubbing/cyanosisMS Lower Extrem Lower Ext/Pelvis/MS Inspection NL, No swelling, Non-tender, No erythema, No deformity, Neurologic intact, Vascular intact, No edemaMS Ankle/Foot Ankle/Foot Inspection NL, No swelling, No erythema, Non-tender, No deformity,Neurologic intact, Vascular intact, No edemaSkin Skin Color NL, Warm, Dry, Turgor NLNeurologic Neurologic Oriented X3, Speech NL, No motor deficits, No sensory deficitsPsychiatric Psychiatric Affect NL, Mood NL, Thought content NL Interpretation Diagnostics Lab Results InterpretationResultsLaboratory Tests 07/16/191957:[Embedded Image Not Available]Laboratory Tests: 07/16 1958 Chemistry Sodium (133 - 142 mEq/L) 137 Potassium (3.5 - 5.0 mEq/L) 3.8 Chloride (98 - 107 mEq/L) 103 Carbon Dioxide (22 - 31 mEq/L) 23 Anion Gap (10 - 20) 14.60 BUN (9 - 20 mg/dL) 7 L Creatinine (0.5 - 1.0 mg/dL) 0.6 Glucose (65 - 100 mg/dL) 79 Calcium (8.9 - 10.7 mg/dL) 8.5 L Total Bilirubin (0.2 - 1.0 mg/dL) 0.3 AST (15 - 37 units/L) 17 ALT (12 - 78 units/L) 25 Total Alk Phosphatase (125 - 500 units/L) 205 Total Protein (6.3 - 8.2 gm/dL) 6.9 Albumin (3.9 - 5.1 gm/dL) 2.7 L Lipase (73 - 393 units/L) 130 Hematology WBC (6.6 - 12.1 K/mm3) 10.5 RBC (3.45 - 5.01 M/mm3) 4.16 Hgb (12.0 - 16.0 g/dL) 11.3 L Hct (36 - 45 %) 35.2 L MCV (84.1 - 94.8 fL) 85 MCH (26 - 32 pg) 27.2 MCHC (32 - 35 gm/dL) 32.1 RDW (12.4 - 16.5 %) 12.9 Plt Count (135 - 380 K/mm3) 231 MPV (9.1 - 12.7 fl) 10.6 Neut % (Auto) (56.5 - 79.4 %) 71.1 Lymph % (Auto) (14.3 - 34.3 %) 21.1 Cowley % (Auto) (5.1 - 10.4 %) 6.2 Eos % (Auto) (0.1 - 3.0 %) 0.7 Baso % (Auto) (0.1 - 1.0 %) 0.5 Neut # (Auto) (K/mm3) 7.5 Lymph # (Auto) (K/mm3) 2.2 Cowley # (Auto) (K/mm3) 0.7 Eos # (Auto) (K/mm3) 0.07 Baso # (Auto) (K/mm3) 0.1 Immature Plt Fraction (0.0 - 10.8 %) 0.0 Urines Urine Color (YELLOW) STRAW Urine Appearance (CLEAR) CLEAR Urine pH (5 - 9) 8.0 Ur Specific [place] (1.001 - 1.035) 1.004 Urine Protein (NEG) NEGATIVE Urine Glucose (UA) (NEG) NEGATIVE Urine Ketones (NEG) NEGATIVE Urine Blood (NEG) NEG Urine Nitrite (NEG) NEG Urine Bilirubin (NEG) NEGATIVE Urine Urobilinogen (NEG mg/dL) NEGATIVE Ur Leukocyte Esterase (NEG) TRACE H Urine RBC (NONE SEEN #/hpf) 0-2 Urine WBC (NONE SEEN #/hpf) 11-15 H Ur Epithelial Cells (RARE - FEW #/HPF) RARE Urine Bacteria (RARE - FEW /HPF) MODERATE H Urine Mucus (NONE SEEN) RARE Urine Sperm (/HPF) FEW Microbiology: Date/Time Procedure - Status Source Growth 07/16 2044 Urine Culture - COMP URINE Lab Imaging StatementLaboratory radiographic studies reviewed and considered in the medical decision-making. Point of Care TestingPulse Oximetry Pulse Ox % 99 On: Room air Interpretation Interpreted by me, Pulse oximetry normal Time 0406 Re-Evaluation MDM Free Text MDM NotesFree Text MDM Notes14 yrs old female 36 wks c/o abd discomfort, nausea and vomiting. No distress. No vaginal bleeding/leakage of fluid. No fever/back pain. No chest pain. 36 wks lower abd discomfort.UA: uti, iv fluid, rocehineNST: navin q [address] Shay, accepted pt to the mac unit.Pt moved to the mac unit for monitring. ED CourseMedication(s) OrderedMedication(s) Ordered:Electrolytic, Caloric, And Sissy Sig/Jennifer Start time Last Medication Dose Route Stop Time Status Admin Sodium Chloride 1,000 ML X1ED STA 07/16 2017 DC 07/16 IV 07/16 Gastrointestinal Drugs Sig/Jennifer Start time Last Medication Dose Route Stop Time Status Admin Ondansetron HCl 4 MG ONCE ONE 07/16 2030 DC 07/16 IV 07/16 Famotidine 20 MG X1ED STA 07/16 2017 DC 07/16 IV 07/16 ConsultationConsultation Referral/Consult Name Vannessa Shay MD Administration Dean Called [facility]TER, On-call physician Requested Call Time 2049 Requested Call Date 07/16/19 Call Returned Call returned Call Returned Time 2049 Call Returned Date 07/16/19 Administration Dean Will see patient, Will see in office, Agrees with eval, Agrees with plan Free Text Consult Notesaccepted pt to the mac Patient Discharge Departure Vital Signs/ConditionVital SignsFirst Documented: Result Date Time Pulse Ox 100 07/16 1949 B/P 116/76 07/16 1949 B/P Mean 89 07/16 1949 O2 Delivery Room air 07/16 1949 Temp 36.6 07/16 1949 Pulse 84 07/16 1949 Resp 16 07/16 1949 Last Documented: Result Date Time Pulse Ox 100 07/16 1949 B/P 116/76 07/16 1949 B/P Mean 89 07/16 1949 O2 Delivery Room air 07/16 1949 Temp 36.6 07/16 1949 Pulse 84 07/16 1949 Resp 16 07/16 1949 All vital signs available at the time of this entry have been reviewed. Condition Improved, Stable Clinical ImpressionClinical ImpressionPrimary Impression: UTI (urinary tract infection)Secondary Impressions: Contraction of calyx of kidney, Dehydration, Disposition DecisionDischarge )( Discharged to Home move to the mac unit )( Time 2054 )( Date 07/16/19 Discharge/Care PlanCounseled Regarding Diagnosis, Need for follow-up, When to return to ED Quality MeasuresRx Drug Database Rev YesBP F/U for HTN F/u with PCP/other docSmoking Cessation Screened, non userTobacco Screening/Cessation 18 years or older, Denies tobacco use at 0407RPT #:[id number] OF REPORTEDEmerst. bernards medical center department [id number]:50:[id number] for patient [id number] [facility]
[2023-11-20 22:54] LABS: SARS-CoV-2 Antigen CONTROL BLUE LINE VIS/BG OK; SARS-CoV-2 Antigen Rapid Res Negative (Negative)
--- NOTE | 2023-11-20 23:09 | ER ---
Nurse's Notes [facility] Name: Hallie Ruiz Age: 18 yrs Sex: Female : 2005 Arrival Date: 11/20/2023 Time: 22:04 Bed 4 Private MD: Diagnosis: Acute upper respiratory infection, unspecified Presentation: 11/19 22:15 Chief complaint: Patient states: cough and having hot flashes. Coronavirus screen: vc1 Client denies travel out of the [place] in the last 14 days. At this time, the client does not indicate any symptoms associated with coronavirus-19. Ebola Screen: Patient negative for fever greater than or equal to 101.5 degrees Fahrenheit, and additional compatible Ebola Virus Disease symptoms Patient denies exposure to infectious person. Patient denies travel to an Ebola-affected area in the 21 days before illness onset. No symptoms or risks identified at this time. Initial Sepsis Screen: Does the patient meet any 2 criteria? No. Patient's initial sepsis screen is negative. Does the patient have a suspected source of infection? No. Patient's initial sepsis screen is negative. Risk Assessment: Do you want to hurt yourself or someone else? Patient reports no desire to harm self or others. Onset of symptoms was November 17, 2023. 22:15 Method Of Arrival: Ambulatory vc1 22:15 Acuity: KYLE 4 vc1 Triage Assessment: 22:20 General: Appears in no apparent distress. comfortable, Behavior is calm, cooperative, vc1 appropriate for age. Pain: Denies pain. Respiratory: Reports cough that is Airway is patent Respiratory effort is even, unlabored, Respiratory pattern is regular, symmetrical, the patient has mild shortness of breath. 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 - Infectious Disease History:: Denies. - Social history:: Smoking status: Patient denies any tobacco usage or history of. Screenin:18 [facility] ED Fall Risk Assessment (Adult) History of falling in the last 3 months, vc1 including since admission No falls in past 3 months (0 pts) Confusion or Disorientation No (0 pts) Intoxicated or Sedated No (0 pts) Impaired Gait No (0 pts) Mobility Assist Device Used No (0 pt) Altered Elimination No (0 pt) Score/Fall Risk Level 0 - 2 = Low Risk Oriented to surroundings, Maintained a safe environment, Educated pt \T\ family on fall prevention, incl call for assistance when getting out of bed. Abuse screen: Denies threats or abuse. Nutritional screening: No deficits noted. Tuberculosis screening: No symptoms or risk factors identified. Assessment: 22:36 General: Appears in no apparent distress. Behavior is calm, cooperative. Pain: Denies tm6 pain. Neuro: Level of Consciousness is awake, alert, obeys commands, Oriented to person, place, time, situation. Cardiovascular: No deficits noted. Reports None Capillary refill < 3 seconds Patient's skin is warm and dry. Respiratory: Airway is patent Respiratory effort is even, unlabored, Respiratory pattern is regular, symmetrical, Parent/caregiver reports the patient having cough that is. GI: Abdomen is round non-distended. : No signs and/or symptoms were reported regarding the genitourinary system. EENT: Reports nasal congestion pain with swallowing. Derm: No signs and/or symptoms reported regarding the dermatologic system. Musculoskeletal: No deficits noted. No signs and/or symptoms reported regarding the musculoskeletal system. Vital Signs: 22:15 BP 116 / 88; Pulse 98; Resp 18; Temp 97.5; Pulse Ox 96% ; Weight 75.75 kg; Height 5 ft. vc1 1 in. ; Pain 0/10; 22:15 Body Mass Index 31.55 (75.75 kg, 154.94 cm) vc1 22:15 Pain Scale: Adult vc1 Vitals: 22:36 Heart Tones 170bpm. tm6 ED Course: 22:07 Patient arrived in ED. jj6 22:09 Isis Yoo FNP-C is [facility]. kb 22:09 Abdoul Lopez MD is Attending Physician. kb 22:17 Triage completed. vc1 22:18 Arm band placed on left wrist. vc1 22:20 Brooklyn Cervantes, RN is Primary Nurse. tm6 22:28 Strep Sent. tm6 22:28 SARS-COV-2 Antigen Rapid Sent. tm6 22:28 Flu Sent. tm6 22:36 Patient has correct armband on for positive identification. Placed in gown. Bed in low tm6 position. Call light in reach. Side rails up X 1. Provided Education on: wait times. Client placed on continuous cardiac and pulse oximetry monitoring. NIBP monitoring applied. Pulse ox on. NIBP on. Door closed. Noise minimized. Warm blanket given. PO fluids given. 23:11 No provider procedures requiring assistance completed. Patient did not have IV access rv during this emergency room visit. Administered Medications: No medications were administered Medication: 22:18 VIS not applicable for this client. vc1 Outcome: 23:08 Discharge ordered by . kb 23:11 Discharged to home ambulatory, rv 23:11 Condition: good 23:11 Discharge instructions given to patient, Instructed on discharge instructions, follow up and referral plans. Demonstrated understanding of instructions, follow-up care, 23:11 Patient left the ED. rv Signatures: Isis Yoo, HOME HELP AIDE-C HOME HELP AIDE-CkEdison Villafuerte, RN RN rv Whit Barrera jj6 Annemarie Swartz RN RN vc1 Brooklyn Cervantes, RN RN tm6
--- NOTE | 2023-11-20 23:09 | EDPHYS ---
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 22:26 Pt is a 18 year old female who presents for cough and runny nose that started 5-6 days kb ago. States she has had "hot flashes" but unknown fever. States she has throat pain when she coughs. States she is and not sure what she can take for the cough. States she hasn't been able to get in touch with her OB so she came here to find out what she can take. 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 - Infectious Disease History:: Denies. - Social history:: Smoking status: Patient denies any tobacco usage or history of. ROS: 22:28 Constitutional: As per HPI kb Exam: 22:28 Constitutional: This is a well developed, well nourished patient who is awake, alert, kb and in no acute distress. Head/Face: Normocephalic, atraumatic. ENT: Moist Mucous membranes Cardiovascular: Regular rate Respiratory: Respirations even and unlabored. No increased work of breathing. Talking in full sentences Skin: Warm, dry with normal turgor. Normal color. MS/ Extremity: Pulses equal, no cyanosis. Neurovascular intact. Full, normal range of motion. Neuro: Awake and alert, GCS 15, oriented to person, place, time, and situation. Moves all extremities. Normal gait. Vital Signs: 22:15 BP 116 / 88; Pulse 98; Resp 18; Temp 97.5; Pulse Ox 96% ; Weight 75.75 kg; Height 5 ft. vc1 1 in. ; Pain 0/10; 22:15 Body Mass Index 31.55 (75.75 kg, 154.94 cm) vc1 22:15 Pain Scale: Adult vc1 MDM: 22:09 Patient medically screened. kb 22:28 Differential diagnosis: flu, covid, uri. Data reviewed: vital signs, nurses notes. kb 23:08 Counseling: I had a detailed discussion with the patient and/or guardian regarding the kb historical points, exam findings, and any diagnostic results supporting the discharge/admit diagnosis, lab results, the need for outpatient follow up, a family practitioner, to return to the emergency department if symptoms worsen or persist or if there are any questions or concerns that arise at home. 11/19 22:16 Order name: Flu; Complete Time: 23:02 kb 11/19 22:16 Order name: SARS-COV-2 Antigen Rapid; Complete Time: 22:55 kb 11/19 22:16 Order name: Strep; Complete Time: 23:02 kb 11/19 22:59 Order name: Throat Culture EDNE 11/19 22:28 Order name: FHT's; Complete Time: 22:39 kb Administered Medications: No medications were administered Disposition Summary: 11/20/23 23:08 Discharge Ordered Notes: Location: Home kb Condition: Stable kb Diagnosis - Acute upper respiratory infection, unspecified kb Followup: kb - With: Emergency Department - When: As needed - Reason: Worsening of condition Followup: kb - With: Private Physician - When: 2 - 3 days - Reason: Recheck today's complaints, Continuance of care, Re-evaluation by your physician Discharge Instructions: - Discharge Summary Sheet kb - Upper Respiratory Infection, Adult, Mcrk-um-Xorb kb - Viral Respiratory Infection, Qozh-Ff-Bwar kb Forms: - Medication Reconciliation Form kb - Antibiotic Education kb - Prescription Opioid Use kb - Patient Portal Instructions kb - Leadership Thank You Letter kb Signatures: Dispatcher [employer] Isis Saul, JANEC RAMIN-Annemarie Chiu RN RN vc1 Corrections: (The following items were deleted from the chart) 22:16 22:16 Influenza Screen (A \\T\\ B)+BA.LAB.BRZ ordered. [facility] 22:16 22:16 SARS-COV-2 Antigen Rapid+I.LAB.BRZ ordered. EDMS EDMS 22:16 Group A Streptococcus Rapid Sc+BA.LAB.BRZ ordered. EDMS EDMS
[2023-11-20 23:37] VITALS: BP 116/88; TEMP 97.5; O2SAT 96
== END 2023-11-20 23:11 | disposition home or self-care (01) ==
LOC: ER 22:04
DX: O99.512 Diseases of the respiratory system complicating pregnancy, second trimester (principal); J06.9 Acute upper respiratory infection, unspecified; Z3A.26 26 weeks gestation of pregnancy; Z11.52 Encounter for screening for COVID-19
CPT/HCPCS: 36415; 87070; 87081; 87804; 87811